=== PATIENT | male | born 1985 | race Two or more races ===

== ENCOUNTER → 2022-01-16 | Emergency (ER) | payer SELFPAY ==
[~2022-01-16] VITALS: Ht 172.7 cm; Wt 72.6 kg
--- NOTE | 2022-01-16 00:43 | NUR ---
BIBRA/[facility] FOR OK TO BOOK, C/O DIFFICULTY BREATHING SATTING 100% ADMITS TO "SNORTING TWO LINES OF COKE" HX OF ANXIETY. PATIENT ALERT AND ORIENTED X4. AMBULATORY WITH NON LABORED BREATHING IN BED 14 AWAITING MD QUIROGA.
[2022-01-16 03:13] VITALS: BP 141/96
--- NOTE | 2022-01-16 03:13 | NUR ---
Patient discharged to home in stable condition. Written and verbal after care instructions given. Patient verbalizes understanding of instruction.
== END ==
LOC: ER 00:48
DX: Z02.89 Encounter for other administrative examinations (principal); Z60.2 Problems related to living alone
CPT/HCPCS: 71045-TC